=== PATIENT | female | born 1950 | race African-American/Black ===

== ENCOUNTER 2024-02-11 17:10 | Emergency (ER) | payer MEDICARE, MEDICAID ==
[~2024-02-11] VITALS: Ht 162.6 cm; Wt 60.0 kg
[2024-02-11 17:12] VITALS: O2SAT 100
[2024-02-11 18:36] LABS: BASOPHILS % 0.3 % (0.0-2.0); EOSINOPHILS % 0.1 % (0.0-5.0); HEMATOCRIT. 30.3 % (36.0-48.0); HEMOGLOBIN. 9.9 g/dL (12.0-16.0); LYMPHOCYTES % 9.9 % (20.0-50.0); MEAN CORPUSCULAR HEMOGLOBIN 32.4 pg (28.0-32.0); MEAN CORPUSCULAR HGB CONC 32.7 g/dL (31.0-37.0); MEAN CORPUSCULAR VOLUME 98.9 fL (81.0-99.0); MEAN PLATELET VOLUME 7.6 fl (7.4-10.4); MONOCYTES % 11.1 % (2.0-8.0); NEUTROPHILS % 78.6 % (40.0-76.0); PLATELET 183 x1000/uL (130-400); RED BLOOD CELL COUNT 3.07 mill/uL (4.2-5.4); RED CELL DISTRIBUTION WIDTH 18.5 % (11.6-14.6); WHITE BLOOD COUNT 8.7 x1000/uL (4.5-11.0)
[2024-02-11 18:43] LABS: CHLORIDE 108 mEq/L (98-107); POTASSIUM 3.5 mEq/L (3.5-5.1); SODIUM 140 mEq/L (136-145)
[2024-02-11 18:44] LABS: CALCIUM 8.6 mg/dL (8.7-10.4); CARBON DIOXIDE 26 mEq/L (21-32)
[2024-02-11 18:48] LABS: PROTHROMBIN TIME 11.6 sec (9.6-11.0)
[2024-02-11 18:49] LABS: CREATININE 0.7 mg/dL (0.6-1.0); GLUCOSE 68 mg/dL (70-105); UREA NITROGEN BLOOD 25 mg/dL (9-23)
[2024-02-11 18:51] LABS: ALANINE AMINOTRANSFERASE 23 IU/L (10-49); ALBUMIN 3.6 g/dL (3.2-4.8); ASPARTATE AMINOTRANSFERASE 33 IU/L (<34); BILIRUBIN DIRECT 0.3 mg/dL (<=3.0); BILIRUBIN TOTAL 0.7 mg/dL (0.1-1.0)
[2024-02-11] MEDS: METHOCARBAMOL 500MG TABLET PO ONE (19:23)
[2024-02-11] MEDS: KETOROLAC 30MG/ML VIAL IV ONE (19:23)
[2024-02-11] MEDS ORDERED: CYCL10TA21 MT (22:35)
[2024-02-11] MEDS ORDERED: IBUP-2029 MT (22:35)
[2024-02-11 22:45] VITALS: BP 120/65; PULSE 71; RESP 15; TEMP 98.9
== END 2024-02-12 00:11 | disposition home or self-care (01) ==
LOC: ER 17:10
DX: S33.5XXA Sprain of ligaments of lumbar spine, initial encounter (principal); W18.39XA Other fall on same level, initial encounter; Y93.89 Activity, other specified; Y92.89 Other specified places as the place of occurrence of the external cause; Y99.8 Other external cause status
CPT/HCPCS: 99285; 74176; 96374; 80076; 80048; 83690; 85025; 85610; 36415; J1885